=== PATIENT | female | born 1930 | race Caucasian/White ===

== ENCOUNTER 2018-08-18 05:19 | Emergency (ER) | payer OTHER ==
[~2018-08-18] VITALS: Ht 165.1 cm; Wt 62.1 kg
[~2018-08-18 05:19] MED LIST: AMARYL2 MG PO; ASPIRIN EC81 M1 PO; CENTRUM SILVER1 EAC4 PO; EVISTA PO; FENOFIBRATE160 MG PO; FISH OIL 1,0001 EAC5 PO; GLUCOSAMINE S1000 M2 PO; LOVASTAT40 PO; TRADJENTA5 MG PO; VESICARE10 M1 PO; ZESTRIL10 MG PO
[2018-08-18] MEDS ORDERED: TRESIBA SUBQ (05:33)
[2018-08-18 06:00] VITALS: BP 182/63
== END 2018-08-18 06:04 | disposition home or self-care (01) ==
LOC: M.ERS 05:19
DX: S71.132A Puncture wound without foreign body, left thigh, initial encounter (principal); X58.XXXA Exposure to other specified factors, initial encounter; Y93.89 Activity, other specified; Y92.89 Other specified places as the place of occurrence of the external cause; Y99.8 Other external cause status; E11.9 Type 2 diabetes mellitus without complications; Z88.2 Allergy status to sulfonamides; Z88.6 Allergy status to analgesic agent

== ENCOUNTER 2019-04-15 10:13 | Emergency (ER) | payer OTHER ==
[~2019-04-15] VITALS: Ht 165.1 cm; Wt 60.8 kg
[~2019-04-15 10:13] MED LIST changes: +TRESIBA SUBQ
[2019-04-15 11:35] VITALS: BP 171/72
== END 2019-04-15 11:25 | disposition home or self-care (01) ==
LOC: M.ERS 10:13
DX: S92.514A Nondisplaced fracture of proximal phalanx of right lesser toe(s), initial encounter for closed fracture (principal); E11.9 Type 2 diabetes mellitus without complications; Z88.2 Allergy status to sulfonamides; Z88.6 Allergy status to analgesic agent; W01.0XXA Fall on same level from slipping, tripping and stumbling without subsequent striking against object, initial encounter; Y92.89 Other specified places as the place of occurrence of the external cause; Y93.89 Activity, other specified; Y99.8 Other external cause status